=== PATIENT | female | born 1945 | race Caucasian/White ===

== ENCOUNTER 2020-02-28 05:24 | Day surgery (SDC) | payer MEDICARE, SELFPAY ==
[2019-10-03 11:17] VITALS: BMI 23.6
--- NOTE | 2020-02-23 11:38 | EKG12_ITS ---
Test Reason : PREOP Blood Pressure : / mmHG Vent. Rate : 061 BPM Atrial Rate : 061 BPM P-R Int : 150 ms QRS Dur : 088 ms QT Int : 438 ms P-R-T Axes : 045 -05 031 degrees QTc Int : 440 ms Normal sinus rhythm Normal ECG Confirmed by KASSY MCKEON, BRY ([id number]), editor managing newspaper KATHERINE BLAIR ([id number]) on 02/27/2020 11:36:10 AM Referred By: Dania Garcia Confirmed By:ZANE ELENA MD
[2020-02-23 11:48] LABS: Hematocrit 45.7 % (37-47); Hemoglobin 14.7 g/dL (12.0-15.0); Mean Corp Hgb Conc 32.2 g/dL (32-36); Mean Corpuscular Hgb 30.9 pg (27.0-32.0); Mean Corpuscular Volume 96.2 fL (81-99); Mean Platelet Vol. 11.6 fl (6.2-12.0); Platelet Count 157 K/mm3 (150-450); RBC Distribution Width CV 12.8 % (11.6-14.6); RBC Distribution Width SD 46.2 fl (35.1-43.9); Red Blood Count 4.75 M/mm3 (4.2-5.4); White Blood Count 5.9 K/mm3 (4.4-11.0)
[2020-02-23 12:16] LABS: ALB/GLOB Ratio 1.3 RATIO (0.9-2.4); AST(SGOT) 12 U/L (15-37); Alanine Aminotransfer ALT/SGPT 21 U/L (13-56); Albumin, Serum 3.9 g/dL (3.2-5.0); Alkaline Phosphatase 75 U/L (45-117); Anion Gap 0 (5-15); BUN 19 mg/dL (7-18); BUN/Creat Ratio 21.2 RATIO (10-20); Calcium,Total 8.7 mg/dL (8.5-10.1); Chloride 106 mmol/L (98-107); EST Glomerular Filtration Rate 65 mL/min (>60); Est Glom Filt Rate - Afr Amer 79 mL/min (>60); Globulin 3.1 g/dL (2.2-4.2); Glucose 106 mg/dL (74-106); Potassium 3.7 mmol/L (3.5-5.1); Sodium Level 141 mmol/L (136-145)
[2020-02-23 13:01] VITALS: BMI 23.6
[2020-02-24 09:56] LABS: Magnesium 2.6 mg/dL (1.6-2.6)
[2020-02-28] VITALS (10 sets, daily range): BP systolic 103–133; BP diastolic 56–70; PULSE 52–67; RESP 15–20; TEMP 35.8–36.7; O2SAT 96–100; BMI 22.9; BMI 24.8; BMI 24.9
[2020-02-28 05:56] LABS: Bedside Glucose 68 mg/dL (70-110)
[2020-02-28] MEDS: Acetaminophen 500 MG Tablet 1000 MG PO ×3 (06:08→19:20)
[2020-02-28] MEDS: Gabapentin 600 MG Tablet PO (06:08)
[2020-02-28] MEDS: Celecoxib 200 MG Capsule 400 MG PO (06:09)
[2020-02-28] MEDS: Scopolamine 1mg/72hr Patch 1 PATCH TRANSDERM. (06:12)
[2020-02-28] MEDS: Enoxaparin 40 MG/0.4 ML Syringe SC (06:16)
[2020-02-28] MEDS: Lactated Ringers 1,000 ML 40 ML IV (06:28)
[2020-02-28] MEDS: dexAMETHasone 10 MG/ML Vial 8 MG IV (06:30)
--- NOTE | 2020-02-28 07:13 | HP.PCM_ITS ---
- Problem List (1) Abnormal ultrasound of breast Status: Acute Comment: left repeat US in 6 months (2) Incomplete uterovaginal prolapse Status: Acute Comment: plan TVH BSO possible LAVH BSO combo case with Celso pelvic floor repair. History and Physical Date of Admission: 02/28/20 Intake Vital Signs 02/23/20 BMI 23.6 02/23/20 Height 5 ft 7 in 02/23/20 Weight: 146 lb 02/23/20 BMI 22.8 02/23/20 BP 116/62 Intake Visit Reasons: pre op Chief Complaint: pre op TVH BSO Celso [employer] Office Required: No Is patient in pain?: No Allergies No Known Allergies Allergy (Verified 02/21/20 09:22) Medications Cholecalciferol (VIT D3) [Vitamin D] 1,000 unit PO DAILY 02/21/20 [History Confirmed 02/21/20] Is last menstrual period known: No Post menopausal: Yes Patient : No : No PFSH Medical History Normal colonoscopy (Acute) Surgical History Cataract (Acute) H/O dilation and curettage (Acute) History of (Resolved) Family History Grandmother Diabetes Father Myocardial infarction Brother CVA (cerebral vascular accident) Diabetes Sister Cancer Social History (Updated 02/23/20 @ 13:[address] Dania Garcia MD) Smoking Status: Never smoker alcohol intake: never substance use type: does not use caffeine: Yes what type of physical activity do you participate in: none seatbelt use: always do you feel safe at home: Yes additional social history: -Raj HPI pre op: Details: YASMIN EVANS is a 74 year old who presents for preop visit for tvh bso possible lavh due to one previous , for treatment of pelvic organ prolapse. Pregancy History 3 Elective abortions Hx Para 3 Spontaneous abortions Hx # Term Pregnancies Ectopic pregnancies Hx # Pregnancies Multiple births # of living children Past Pregnancies Del. Date Name GA/Weeks Outcome Route Bth Weight Gen Labor Lgth Anesthesia Del Locatn Provider FOB Unknown -1967 Unknown Radha-1969 Unknown Cameron-1976 ROS Const Constitutional: Denies fatigue, fever(s), headache(s), increased appetite, poor appetite, weight gain or weight loss ENT ENT: Denies dizziness or dry mouth Cardio Card: Denies chest pain Resp Resp: Denies cough or dyspnea GI GI: Reports as per HPI; denies abdominal pain, constipation, nausea or vomiting : Reports as per HPI; denies difficulty urinating, painful urination, pelvic pain, urinary frequency, urinary incontinence, urinary hesitancy, urinary urgency, vaginal discharge, vaginal dryness, vaginal odor or vaginal itching Musc Musc: Denies joint pain, back pain or muscle weakness Skin Skin/Breast: Denies hair loss, change in hair, dry skin, breast lump, breast pain or breast skin changes Neuro Neuro: Denies dizziness Psych Psych: Denies anxiety or depression Endo Endo: Denies cold intolerance, excessive sweating, heat intolerance or increased thirst Alexandru/Lymph Hematologic/Lymphatic: Denies easy bleeding, Denies easy bruising, Denies enlarged lymph nodes Exam Const General: cooperative, healthy appearing, comfortable, no acute distress, well developed Nutritional Appearance: average body habitus Orientation: alert [facility] Head: normal to inspection, normocephalic Ears: hearing grossly normal bilaterally, external ears normal Nose: external nose normal, nares normal Face and sinus: normal facial exam Neck Neck: normal visual inspection, no lymphadenopathy, trachea midline Thyroid: thyroid normal Chest Chest palpation & inspection: normal inspection of the chest Resp Effort & Inspection: normal respiratory effort Auscultation: clear to auscultation bilaterally Cardio Rate: regular rate Rhythm: regular rhythm Heart Sounds: S1 normal, S2 normal GI Inspection: normal to inspection, non-distended Palpation: soft, no hepatosplenomegaly General: bladder normal to palpation External Female Exam: normal external appearance, normal appearance of the urethra Urethra: normal appearance of the urethra Speculum Exam - Vagina: normal appearance of the vagina, normal vaginal discharge Speculum Exam - Cervix: normal appearance of the cervix, nontender Bimanual Exam- Vagina & Uterus: bladder normal to palpation, No cervical tenderness Bimanual Exam- Adnexa, other: normal adnexae, adnexae mobile, no adnexal masses, rectocele, cystocele, vaginal apex descent Pelvic Support: cystocele, rectocele, vaginal apex descent Musc Cervical Spine: other Other: gross motor intact no deficits, full bilateral strength Skin General: no rashes or lesions noted Neuro General: alert, awake, moves all extremities, no focal motor deficits Motor: muscle tone normal throughout Extrem General: normal to inspection, no pedal edema Psych Appearance: grossly normal Mental Status: mental status grossly normal Affect: normal affect Speech and Movement: speech and movement normal Assessment & Plan Problems 1. Incomplete uterovaginal prolapse N81.2 plan TVH BSO possible LAVH BSO combo case with Celso pelvic floor repair. 2. Abnormal ultrasound of breast R92.8 left repeat US in 6 months Plan After discussing the patient's diagnosis and treatment plan options, patient wishes to proceed with surgical management. I have discussed with the patient the risks, benefits, and alternatives of the procedure which include but are not limited to risks of anesthesia, bleeding, infection, possible damage to bowel, bladder, or surrounding vasculature which could lead to additional surgery to evaluate any complications. Patient agrees to procedure and wishes to proceed. ACOG/uptodate references given for additional information regarding procedure. Coding Level of Care Code No Charge Diagnoses Incomplete uterovaginal prolapse N81.2 Abnormal ultrasound of breast R92.8 UPDATE- I have seen the patient and performed any clinically relevant updates to the history and physical exam. Dania Garcia MD
[2020-02-28] MEDS: Cefazolin 2 GM in 0.9% Normal Saline 100 ML IV (07:23)
--- NOTE | 2020-02-28 07:23 | PCM.OPRPT ---
Problem List (1) Abnormal ultrasound of breast Status: Acute Comment: left repeat US in 6 months (2) Incomplete uterovaginal prolapse Status: Acute Comment: plan TVH BSO possible LAVH BSO combo case with Celso pelvic floor repair. Report of Operation Date of Procedure: 02/28/20 Pre-Operative Diagnosis: incomplete prolapse Post-Operative Diagnosis: same Surgery/Procedure Performed:: tvh Description of Surgical Findings:: nl uterus tubes ovaries, unable to safely reach the tubes or ovaries. branding machine tender: Nidia Ortega Type of Anesthesia:: General Special Medications: none Specimen's removed: uterus tubes ovaries Drains: camejo Estimated Blood Loss (mL): 50 Fluids Replaced: crystalloid Description of Procedure: Patient was taken to the operating room and was placed under general anesthesia was prepped and draped in normal sterile fashion in the dorsal lithotomy position. Preoperative antibiotics and SCDs and Camejo catheter was placed inside the bladder. Weighted speculum was placed in the vagina and the anterior and posterior lip of the cervix was grasped with 2 Garret clamps and circumferentially injected with dilute vasopressin. A circumferential incision was made with a scalpel and the posterior cul-de-sac was entered into sharply and a longneck speculum was placed. The anterior cul-de-sac was also dissected down and entered into sharply and the uterosacral ligaments were clamped cut and suture ligated bilaterally followed by the cardinal ligaments which were Clamped cut and suture ligated bilaterally with 0 Monocryl. The uterus serially descended and progressive bites were taken bilaterally up to the level of the utero-ovarian ligament bilaterally which was clamped transected and double ligated with 0 Monocryl suture and 0 Vicryl free tie. Bilateral fallopian tubes and ovaries were visualized and noted be within normal limits but outside the operative field to be able to safely remove vaginally. this had been discussed previously with the patient that due to poor visualization ovaries may remain if normal. Excellent hemostasis was noted. Posterior peritoneum and the vagina were closed with [id number] 0 Vicryl pop offs including the posterior and anterior peritoneum in the reapproximation. Excellent hemostasis was noted. All instruments removed from the vagina clear urine was noted at the end of the procedure. see dr black's note for additional operative information. Grafts/Implants Used: see urogyn note - Complications none - Admit VTE Documentation VTE Present on Admission: No VTE Mechan Device Prophylaxis: SCD's VTE Pharm Prophylaxis ordered?: Yes Multi Select Codes - Urinary/Genital Urinary/Genital CPT Codes: 15512 TVH <250 gr uterus
--- NOTE | 2020-02-28 07:26 | PCM.DC.VHY ---
Discharge Diet: No Restrictions Discharge Activity: Return to Normal Activity, May Not Drive, May Shower May resume sexual activity in: 6-8 weeks Call your doctor if your incision/area has: Continuous Slow Oozing, Sudden Increased Bleeding, Increased Pain/ Swelling, Increased Redness, Foul Smelling Discharge Call your doctor if you observe: Fever of 101 or Higher, Inability to urinate, Inability to have a bowel movement, Using more than one pad per hour Allergies/Adverse Reactions: Allergies No Known Allergies Allergy (Verified 02/28/20 05:58) Medications to take at Discharge Cholecalciferol (VIT D3) [Vitamin D] 1,000 unit PO DAILY 02/21/20 Orders to be completed after discharge: Magnesium Time Frame: 02/23/20, Facility: [facility], Location: Laboratory Primary Care Physician: Ranjana Rasmussen PA [Primary Care Provider] - Test Results: Test results from this visit will be discussed in further detail at your follow-up appointment, if applicable. Please Follow Up With: Dania Garcia MD - [phone]
--- NOTE | 2020-02-28 07:30 | HYST_PTH ---
PATIENT: YASMIN EVANS LOC: [facility] [place] U#:[id number] AGE/SX: 74/F ROOM: RE02/28/[address]: Dr. Dania Garcia MD : 1945 BED: DIS: 02/29/2020 SPEC #: [id number] RECD: 02/28/20 09:55 STATUS: ADÁN CRISSY #: [id number] ANNE: 02/28/20 07:[address]: Dania Garcia DEPT: SURGICAL PATHOLOGY RECD BY: Kacey Bryant ENTERED: 02/28/20 14:33 SP TYPE: HYSTERECT OTHR DR: MD Ranjana Shaw PA Tissues: Uterus, NOS Procedures: Surgery Specimen Level V HEADER OPERATION: ERAS, vaginal hysterectomy PRE-OP DIAGNOSIS: Incomplete uterovaginal prolapse TISSUE SUBMITTED: Uterus and cervix MICROSCOPIC DIAGNOSIS Uterus and cervix, vaginal hysterectomy: Cervix - focal mild chronic inflammation. Endometrium - weakly proliferative endometrium with focal cystic changes. Myometrium - focal superficial adenomyosis. BLANCA:jolene 02/29/20 MICROSCOPIC DESCRIPTION Slides are reviewed. GROSS DESCRIPTION Received in fixative is one container labeled with the patient's name and designated uterus and cervix. The specimen consists of a hysterectomy specimen consisting of uterus with cervix weighing 58 gm and measuring 8.5 x 4 x 3.5 cm. The serosal surface is riojas, glistening. The ectocervical mucosa is unremarkable. The external os is slit-like in contour. The endocervical canal measures 3 cm in length and the endocervical mucosa is unremarkable. The triangular endometrial cavity measures 4 cm in length and 1.5 cm in width. The endometrium is riojas, glistening without any mass lesion and measures <0.1 cm in thickness. Sections of the myometrial wall reveal a nodular mass lesion measuring up to 1.5 cm in thickness. Biogeographer sections are submitted in six cassettes as follows: 1 - anterior cervix, 2??posterior cervix, 3 & 4 - anterior uterine wall, 5 & 6 - posterior uterine wall. / BLANCA:jolene 02/28/20 TC:5 CPT: 30652
--- NOTE | 2020-02-28 07:58 | PCM.HP.STD ---
Problem List (1) Urethral hypermobility Status: Acute (2) Incomplete uterovaginal prolapse Status: Acute Comment: plan TVH BSO possible LAVH BSO combo case with Celso pelvic floor repair. History of Present Illness Date of Admission: 02/28/20 Chief Complaint: Incomplete uterovaginal prolapse, urethral hypermobility The patient is a 74 year old F with pelvic organ prolapse who presented to the office for evaluation and management. She underwent urodynamics and office cystoscopy. After discussing all of the risks, benefits and alternatives, she decided to proceed with surgical intervention in combination with Dr. Garcia. Included in the discussion of risks was that of COVID-19. Past Medical History Medical History: Medical History (Last Reviewed 02/28/20 @ 07:[address] Larissa Houston MD) Normal colonoscopy 2016 Allergies No Known Allergies Allergy (Verified 02/28/20 05:58) Home Medications: Ambulatory Orders Medication Instructions Recorded Cholecalciferol (VIT D3) [Vitamin 1,000 unit PO DAILY 02/21/20 D] Surgical History: Surgical History (Last Reviewed 02/28/20 @ 07:[address] Larissa Houston MD) Cataract H26.9 bilateral H/O dilation and curettage Z98.890 History of Z98.891 Smoking Status: Never smoker Tobacco Use: Non-smoker Review of Systems Constitutional: Denies: Anorexia, Chills, Fever Eyes: Denies: Vision Change HEENT: Denies: Difficulty Swallowing, Visual Changes Cardiovascular: Denies: Chest Pain, Chest Pressure Respiratory: Denies: Cough, Shortness of Breath Gastrointestinal: Denies: Abdominal Pain, Nausea, Vomiting Genitourinary: Denies: Dysuria, Hematuria Musculoskeletal: Denies: Muscle pain Skin: Denies: Wounds Neurological: Denies: Difficulty swallowing VTE Information - Inpt Only VTE Present on Admission: Yes VTE Mechan Device Prophylaxis: SCD's VTE Pharm Prophylaxis ordered?: Yes Patient Problems: Active and Suspected Problems (Last Reviewed 02/23/20 @ 13:01 by Dorina Lynn) Urethral hypermobility (Acute) - Physical Exam Vitals/I&O's: Vital Signs Temp Pulse Resp BP Pulse Ox 97.4 F L 60 15 125/68 H 100 02/28/20 06:00 02/28/20 06:00 02/28/20 06:00 02/28/20 06:00 02/28/20 06:00 Oxygen Delivery Method Room Air Weight: 65.4 kg Body Mass Index (BMI) 22.9 General: Alert, Oriented x3, Cooperative, No apparent distress HEENT: Atraumatic, Normocephalic Oral: Moist Mucosa Neck: Supple, Trachea Midline Lungs: Normal air movement Cardiovascular: Regular rate, Regular Rhythm Abdomen: Soft, Non Tender, Non-Distended Extremities: No clubbing Skin: No rashes, No breakdown Musculoskeletal: No Muscle Wasting Neurological: Cranial nerves II-XII grossly intact, Neuro grossly intact Psych/Mental Status: Normal Affect, Alert and oriented to time, place, person, mood and affect Laboratory Results 02/28/20 05:52: POC Glucose 68 L Current Medications Lactated Ringer's () 1,000 mls @ 40 mls/hr IV .Q25H KISHAN Last Admin: 02/28/20 06:28 Dose: 40 mls/hr Documented by: Lactated Ringer's () 1,000 mls @ 70 mls/hr IV .[id number] KISHAN Insulin Human Lispro (Humalog Kwikpen (Bkc)) 0 unit SC Q4H PRN PRN; Protocol PRN Reason: BG >/= 180, SEE PROTOCOL Assessment/Plan All Active Problems (Last Reviewed 02/23/20 @ 13:01 by Dorina Lynn) Urethral hypermobility (Acute) Abnormal ultrasound of breast (Acute) Incomplete uterovaginal prolapse (Acute) proceed with anterior repair, possible posterior repair, possible Dermis, sacrospinous ligament fixation, midurethral sling and cystoscopy Procedure Criteria Procedure Type: Elective COVID Risk Discussion: The surgeon/proceduralist and patient have discussed in detail the risk of exposure to and/or potential harm posed by the COVID-19 virus with having a surgery/procedure at this time versus the risk of delaying the surgery/procedure. It is not possible to know either the risk of delaying the surgery or procedure or chance of getting an infection with perfect accuracy, but a joint decision was made between the patient and the surgeon/proceduralist to proceed at this time with the scheduled surgery/procedure as indicated on the consent form.
--- NOTE | 2020-02-28 08:03 | DCINST_ITS ---
Discharge Diet: No Restrictions Discharge Activity: May Not Drive, May Shower May resume sexual activity in: 6-8 weeks Lifting Restrictions: 5 pounds Additional Activity Instructions:: No exercise, no strenuous activity, no sexual activity, no lifting over 5 pounds, no swimming, no tub bathing, no hot tubs. Nothing per vagina except for estrogen cream which should be continued as per present routine. Call your doctor if your incision/area has: Continuous Slow Oozing, Sudden Increased Bleeding, Increased Pain/ Swelling, Increased Redness, Foul Smelling Discharge Call your doctor if you observe: Fever of 101 or Higher, Inability to urinate, Inability to have a bowel movement, Using more than one pad per hour Allergies/Adverse Reactions: Allergies No Known Allergies Allergy (Verified 02/28/20 05:58) Medications to take at Discharge Cholecalciferol (VIT D3) [Vitamin D] 1,000 unit PO DAILY 02/21/20 Orders to be completed after discharge: Magnesium Time Frame: 02/23/20, Facility: [facility], Location: Laboratory Primary Care Physician: Ranjana Rasmussen PA [Primary Care Provider] - Test Results: Test results from this visit will be discussed in further detail at your follow- up appointment, if applicable. Please Follow Up With: Larissa Houston MD When: call office for appt. Proposed Discharge Date: 02/29/20
[2020-02-28] MEDS: Lactated Ringers 1,000 ML 70 ML IV ×2 (08:30→17:34)
[2020-02-28] MEDS: Vasopressin 20 UNITS/ML Vial (09:49)
[2020-02-28] MEDS: Estrogens,Conj. 1 Tube 1 DOSE (09:50)
--- NOTE | 2020-02-28 10:36 | PCM.OPRPT ---
Problem List (1) Urethral hypermobility Status: Acute (2) Incomplete uterovaginal prolapse Status: Acute Comment: plan TVH BSO possible LAVH BSO combo case with Celso pelvic floor repair. Report of Operation Date of Procedure: 02/28/20 Pre-Operative Diagnosis: Incomplete uterovaginal prolapse, urethral hypermobility Post-Operative Diagnosis: Same Surgery/Procedure Performed:: Anterior repair with dermis, bilateral sacrospinous ligament fixation, posterior repair with dermis, mid urethral sling, cystoscopy, bilateral ureteral catheterization trimming department blocker: Lucio Hill Type of Anesthesia:: General Estimated Blood Loss (mL): 25 cc Description of Procedure: The patient is a 74-year-old female with pelvic organ prolapse who presented to the office for evaluation and management. She had urodynamics performed along with cystoscopy. Informed consent was obtained after discussing all the risks benefits and alternatives including that of COVID-19. The patient was taken to the operating room and placed on the operating room table. Anesthesia monitored the head, neck, airway, IV access and vital signs throughout the case. Once anesthesia was appropriately administered the patient was placed into dorsal lithotomy in Trendelenburg position. She was prepped and draped in usual sterile fashion. A Pelletier catheter was inserted to straight drain and the bladder was emptied. Dr. Garcia formed a hysterectomy with closure of the cuff. At this time the case was turned to ca. The anterior vaginal wall was injected submucosally with vasopressin for hydrostatic dissection and hemostatic control. A midline incision approximately 3 cm in length was then made. Sharp and blunt dissection was performed performed on either side until the ischial spine was identified and the sacrospinous ligament was freed from surrounding tissues. Using the Capio device, a Monodek suture was passed through the sacrospinous ligament on either side, was brought through the dermis and out to the apex through the vaginal mucosa in full-thickness fashion. The dermis was cut to size and attached to the white lines bilaterally, and at the area just proximal to the bladder neck. The midline mucosal incision was closed with running interlocking Vicryl. A similar process was performed in the posterior aspect of the vaginal wall. There was Waddy dissection performed with injection of vasopressin in the submucosa. An incision was made approximately 1 cm in length, and was followed by both blunt and sharp dissection until the rectovaginal fascia was identified. I was unable to bring it together in the most proximal portion of the defect and I used a piece of leftover dermis to bridge the gap, suturing it into place with 2-0 Vicryl on the lateral aspect and in the midline to the rectovaginal fascia. The perineal body was brought together in 2 layer closure with 2-0 Vicryl. The entire length of the vaginal mucosa was then closed with running interlocking 2-0 Vicryl. The mid urethra was identified and injected submucosally with vasopressin. A midline incision approximately 2 cm in length was then made. Sharp and blunt dissection was performed on either side of the urethra with care being taken to avoid entrance into the urethra. The Altis mid urethral sling was passed using the trochars. The sling lay flat against the urethra without tension. The tensioning suture was cut once the sling was in place. The midline incision was closed using running interlocking 2-0 Vicryl. A cystourethroscopy was then performed. Secondary to her longstanding prolapse there is redundant tissue in the ureteral orifices were angled at their entry. A whistle-tip catheter 5 Salvadorean in size was inserted easily to the right side with no obstruction identified. The left side however, I was unable to insert the whistle-tip catheter easily but a 0.035 glide wire did go without difficulty. I visualized a good ureteral jet from the left side which was clear in color. I waited 15 minutes for blue urine, and clear urine was seen from both orifices. The Pelletier catheter was replaced and the vagina was packed with Premarin cream and vaginal packing. The patient was awakened and taken to the recovery room in good condition. There were no complications during the procedure. Grafts/Implants Used: [place] dermis, Altis mid urethral sling - Complications None - Admit VTE Documentation VTE Present on Admission: Yes VTE Mechan Device Prophylaxis: SCD's VTE Pharm Prophylaxis ordered?: Yes
--- NOTE | 2020-02-28 10:46 | DCINST_ITS ---
Discharge Diet: No Restrictions Discharge Activity: May Not Drive, May Shower May resume sexual activity in: 6-8 weeks Additional Activity Instructions:: No exercise, no strenuous activity, no sexual activity, no lifting over 5 pounds, no swimming, no tub bathing, no hot tubs. Nothing per vagina except for estrogen cream which should be continued as per present routine. Call your doctor if your incision/area has: Continuous Slow Oozing, Sudden Increased Bleeding, Increased Pain/ Swelling, Increased Redness, Foul Smelling Discharge Call your doctor if you observe: Fever of 101 or Higher, Inability to urinate, Inability to have a bowel movement, Using more than one pad per hour Allergies/Adverse Reactions: Allergies No Known Allergies Allergy (Verified 02/28/20 05:58) Medications to take at Discharge Cholecalciferol (VIT D3) [Vitamin D] 1,000 unit PO DAILY 02/21/20 Orders to be completed after discharge: Magnesium Time Frame: 02/23/20, Facility: [facility], Location: Laboratory Primary Care Physician: Ranjana Rasmussen PA [Primary Care Provider] - Test Results: Test results from this visit will be discussed in further detail at your follow- up appointment, if applicable. Proposed Discharge Date: 02/29/20
[2020-02-28] MEDS: Docusate Sodium 100 MG Capsule PO ×2 (14:47→21:14)
[2020-02-28] MEDS: Ketorolac 15 MG/ML Vial IV ×2 (14:47→19:19)
[2020-02-28] MEDS: Cefazolin 1 GM/50 ML BAG IV ×2 (14:52→21:12)
[2020-02-28] MEDS: 0.9% Saline Lock 10 ML Syringe IV (19:20)
[2020-02-29 00:40] VITALS: BP 106/54; PULSE 62; RESP 16; TEMP 36.5; O2SAT 98
[2020-02-29 00:44] VITALS: BMI 24.9
[2020-02-29] MEDS: Acetaminophen 500 MG Tablet 1000 MG PO ×3 (00:46→18:34)
[2020-02-29] MEDS: Ketorolac 15 MG/ML Vial IV ×3 (00:47→13:46)
[2020-02-29] MEDS: 0.9% Saline Lock 10 ML Syringe IV (00:47)
[2020-02-29 04:18] VITALS: BP 111/54; PULSE 59; RESP 16; TEMP 36.6; O2SAT 97
[2020-02-29 04:25] VITALS: BMI 24.9
[2020-02-29] MEDS: Cefazolin 1 GM/50 ML BAG IV ×2 (05:10→13:48)
[2020-02-29 06:15] LABS: Hematocrit 38.5 % (37-47); Hemoglobin 12.8 g/dL (12.0-15.0); Mean Corp Hgb Conc 33.2 g/dL (32-36); Mean Corpuscular Hgb 31.4 pg (27.0-32.0); Mean Corpuscular Volume 94.4 fL (81-99); Mean Platelet Vol. 11.4 fl (6.2-12.0); Platelet Count 147 K/mm3 (150-450); RBC Distribution Width CV 12.8 % (11.6-14.6); Red Blood Count 4.08 M/mm3 (4.2-5.4); White Blood Count 12.1 K/mm3 (4.4-11.0)
[2020-02-29 06:34] LABS: Anion Gap 2 (5-15); BUN 10 mg/dL (7-18); BUN/Creat Ratio 12.5 RATIO (10-20); Calcium,Total 8.5 mg/dL (8.5-10.1); Chloride 106 mmol/L (98-107); EST Glomerular Filtration Rate 75 mL/min (>60); Est Glom Filt Rate - Afr Amer 90 mL/min (>60); Estimated Creatinine Clearance 57.76 ml/min; Glucose 94 mg/dL (74-106); Potassium 3.9 mmol/L (3.5-5.1); Sodium Level 138 mmol/L (136-145)
[2020-02-29 07:58] VITALS: BMI 24.9
[2020-02-29 08:15] VITALS: BP 120/69; PULSE 64; RESP 16; TEMP 36.5; O2SAT 99
--- NOTE | 2020-02-29 08:38 | PN.OBGYN_ITS ---
Patient Problems: Active and Suspected Problems (Last Reviewed 02/28/20 @ 07:[address] Larissa Houston MD) Urethral hypermobility (Acute) Subjective: Pain controlled. Tolerating PO. Denies CP, SOB - Physical Exam Vitals/I&O's: Vital Signs Temp Pulse Resp BP Pulse Ox 97.8 F 59 L 16 111/54 L 97 02/29/20 04:18 02/29/20 04:18 02/29/20 04:18 02/29/20 04:18 02/29/20 04:18 Oxygen Flow Rate (L/min) 6 Oxygen Delivery Method Room Air Weight: 154 lb Body Mass Index (BMI) 24.8 Intake and Output for Last 24 Hours 02/27/20 02/28/20 02/29/20 23:59 23:59 23:59 Intake Total 3937.83 / 3937.83 909.92 / 909.92 Output Total 2325 / 2325 1700 / 1700 Balance 1612.83 / 1612.83 -790.08 / -790.08 General: Alert, Oriented x3 Lungs: - - normal respiratory effort Abdomen: Soft, Non Tender, Non-Distended Laboratory Results 02/29/20 06:00: WBC 12.1 H, RBC 4.08 L, Hgb 12.8, Hct 38.5, MCV 94.4, MCH 31.4, MCHC 33.2, RDW Std Deviation 44.0 H, RDW Coeff of Presley 12.8, Plt Count 147 L, MPV 11.4 02/29/20 06:00: Sodium 138, Potassium 3.9, Chloride 106, Carbon Dioxide 30.0, Anion Gap 2 L, BUN 10, Creatinine 0.80, Estim Creat Clear Calc 57.76, Est GFR (MDRD) Af Amer 90, Est GFR (MDRD) Non-Af 75, BUN/Creatinine Ratio 12.5, Glucose 94, Calcium 8.5 Current Medications Acetaminophen (Tylenol) 1,000 mg PO Q6H [facility] Last Admin: 02/29/20 06:16 Dose: 1,000 mg Documented by: Cholecalciferol (Vitamin D (25mcg)) 1,000 unit PO DAILY [facility] Last Admin: 02/28/20 14:47 Dose: 1,000 unit Documented by: Docusate Sodium (Colace) 100 mg PO BID [facility] Last Admin: 02/28/20 21:14 Dose: 100 mg Documented by: Enoxaparin Sodium (Lovenox) 40 mg SC DAILY [facility] Sodium Chloride () 250 mls @ 15 mls/hr IV .[id number] PRN PRN Reason: Saline Flush Last Infusion: 02/29/20 05:40 Dose: 15 mls/hr Documented by: Cefazolin Sodium () 1 gm in 50 mls @ 100 mls/hr IV Q8 [facility] Last Infusion: 02/29/20 05:40 Dose: Infused Documented by: Ketorolac Tromethamine (Toradol (Bkc)) 15 mg IV Q6H [facility] Stop: 02/29/20 19:01 Last Admin: 02/29/20 06:08 Dose: 15 mg Documented by: Magnesium Oxide (Mag-Ox 400) 400 mg PO DAILY PRN PRN PRN Reason: Constipation Nutritional Formula (Lactose Free) (Ensure Enlive) 120 ml PO TIDCM [facility] Ondansetron HCl (Zofran Odt) 4 mg PO Q6H PRN PRN PRN Reason: NAUSEA Oxycodone HCl (Oxyir) 5 - 10 mg PO Q4H PRN PRN PRN Reason: Pain Score 4-10/10 Sodium Chloride () 10 - 40 ml IV UD PRN PRN Reason: SALINE FLUSH Last Admin: 02/29/20 00:47 Dose: 10 ml Documented by: Medical Necessity - Tobacco Use Smoking Status: Never smoker Tobacco Use: Non-smoker Assessment/Plan All Active Problems (Last Reviewed 02/28/20 @ 07:[address] Larissa Houston MD) Urethral hypermobility (Acute) Abnormal ultrasound of breast (Acute) Incomplete uterovaginal prolapse (Acute) TVH postop day #[address] Houston See exam note and discharge orders per Dr. Houston Plans home later today
[2020-02-29] MEDS: Enoxaparin 40 MG/0.4 ML Syringe SC (09:57)
[2020-02-29] MEDS: Docusate Sodium 100 MG Capsule PO (09:59)
[2020-02-29 11:58] VITALS: BMI 24.9
[2020-02-29 13:52] VITALS: BP 112/64; PULSE 60; RESP 16; TEMP 36.6; O2SAT 98
[2020-02-29 15:58] VITALS: BMI 24.9
[2020-02-29 18:36] VITALS: BP 121/66; PULSE 65; RESP 16; TEMP 37.2; O2SAT 97
--- NOTE | 2020-02-29 19:41 | NURSING ---
pt going home with camejo catheter... prior to insertion of camejo catheter pt voided 300ml of light blue urine. after insertion of camejo catheter pt drained 600ml of lt blue urine.
== END 2020-02-29 19:04 | disposition home or self-care (01) ==
LOC: SDC 05:24 → AC 05:25 → MS3 02-29 08:45
PROVIDERS: Anesthesiology; Urology; PCP Physician Assistant; Referring Provider Obstetrics & Gynecology; Visit Provider Obstetrics & Gynecology
PROC: (CPT 58260; principal; 2020-02-28 07:10)
PROC: (CPT 57260; 2020-02-28 07:10)
DX: N81.2 Incomplete uterovaginal prolapse (principal); N36.41 Hypermobility of urethra; N72 Inflammatory disease of cervix uteri; Z11.59 Encounter for screening for other viral diseases; Z79.01 Long term (current) use of anticoagulants; Z79.1 Long term (current) use of non-steroidal anti-inflammatories (NSAID); Z79.899 Other long term (current) drug therapy; Z78.0 Asymptomatic menopausal state
CPT/HCPCS: 00944; 57260; 57267 ×2; 57282; 57288; 58260; 36415; 80048; 80053; 82962; 83735; 85027; 86850; 86900; 86901; 87635; 88307; 93005; 99251; 99406; C9803; G2023; J7050; J7120; A4216; C1758; G0463; J2405; Q9968; U0003

== ENCOUNTER → 2020-03-12 | Outpatient (CLI) | payer MEDICARE, SELFPAY ==
[2020-03-12 14:38] VITALS: BMI 24.8
== END | disposition home or self-care (01) ==
LOC: LABSPEC 16:05
PROVIDERS: PCP Physician Assistant; Referring Provider Obstetrics & Gynecology; Visit Provider Obstetrics & Gynecology
DX: N89.8 Other specified noninflammatory disorders of vagina (principal)
CPT/HCPCS: 87070; 87205